=== PATIENT | female | born 1970 | race Caucasian/White ===

== ENCOUNTER 2016-08-21 13:43 | Observation (INO) | payer OTHER ==
[~2016-08-21] VITALS: Ht 172.7 cm; Wt 80.0 kg
[~2016-08-21 13:43] MED LIST: PREN0.01 PO
[2016-08-21 13:45] VITALS: BP 162/82; PULSE 74; RESP 16; TEMP 97.5; O2SAT 99
[2016-08-21 14:23] LABS: AUTOMATED NEUTROPHIL # 2.9 TH/MM3 (1.8-7.7); BASOPHIL % 0.7 % (0.0-2.0); EOSINOPHIL # 0.1 TH/MM3 (0-0.4); EOSINOPHIL % 1.1 % (0.0-4.0); HEMATOCRIT 40.4 % (35.0-46.0); HEMO FLAGS DIFF FINAL; LYMPH % 34.4 % (9.0-44.0); LYMPHOCYTE # 1.8 TH/MM3 (1.0-4.8); MEAN CELL VOLUME 92.8 FL (80.0-100.0); MEAN CORPUSCULAR HEMOGLOBIN 32.8 PG (27.0-34.0); MEAN CORPUSCULAR HGB CONC 35.4 % (32.0-36.0); MONO % 6.2 % (0.0-8.0); NEUT % 57.6 % (16.0-70.0); PLATELET COUNT 230 TH/MM3 (150-450); RED BLOOD COUNT 4.35 MIL/MM3 (4.00-5.30); WHITE BLOOD COUNT 5.1 TH/MM3 (4.0-11.0)
[2016-08-21 14:36] LABS: ANION GAP 4 MEQ/L (5-15); BICARBONATE 29.6 MEQ/L (21.0-32.0); BLOOD UREA NITROGEN 9 MG/DL (7-18); CHLORIDE 105 MEQ/L (98-107); GLOMERULAR FILTRATION RATE 73 ML/MIN (>89); POTASSIUM 3.6 MEQ/L (3.5-5.1); SODIUM (NA) 139 MEQ/L (136-145)
[2016-08-21 14:40] LABS: CREATINE KINASE 39 U/L (26-192)
--- NOTE | 2016-08-21 15:32 | RADRPT ---
EXAM DATE/TIME: 08/21/2016 14:59 [facility] COMPARISON: CHEST SINGLE AP, April 06, 2014, 15:53. INDICATIONS : Chest pain for 2 days. MEDICAL HISTORY : None. SURGICAL HISTORY : None. ENCOUNTER: Initial ACUITY: 2 days PAIN SCORE: 3/10 LOCATION: Bilateral chest FINDINGS: A single view of the chest demonstrates the lungs to be symmetrically aerated without evidence of mas s, infiltrate or effusion. The cardiomediastinal contours are unremarkable. Osseous structures are intact. CONCLUSION: No acute disease. Garcia Mooney MD on August 21, 2016 at 15:30 Board Certified Radiologist. This report was verified electronically.
[2016-08-21] MEDS ORDERED: ASPIRIN 81 MG CHEW TAB CHEW ONE (17:30)
[2016-08-21] MEDS ORDERED: LAMI200T PO (18:17)
[2016-08-21] MEDS ORDERED: AMBI10TA PO (18:17)
[2016-08-21] MEDS ORDERED: CITA10TA4 PO (18:17)
--- NOTE | 2016-08-21 19:31 | PD ---
HPI Chief Complaint: Cardiac Complaint Time Seen by Provider: 17:02 Travel History International Travel<30 days: No Contact w/Intl Traveler<30days: No Traveled to known affect area: No History of Present Illness HPI Patient is a 46 year old female who comes in complaining of chest pain and dyspnea on exertion. She says she has been feeling unwell for the past few days. She started having on and off chest pressure for the past 4 days. She says her symptoms got worse today when she became very short of breath walking up the stairs at work. She says she does this everyday without issue usually. She denies any cough. She denies nausea or vomiting. She denies fever or chills. She denies leg swelling or calf pain. She says she did travel to [place] twice two weeks ago. 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) Allergies-Medications (Allergen,Severity, Reaction): Coded Allergies: Morphine (Verified Allergy, Severe, HIVES, 08/21/16) Reported Meds & Prescriptions Reported Meds & Active Scripts Active Reported Ambien (Zolpidem Tartrate) 10 Mg Tab 10 Mg PO HS PRN Citalopram (Citalopram Hydrobromide) 10 Mg Tab 10 Mg PO DAILY Lamictal (Lamotrigine) 200 Mg Tab 200 Mg PO DAILY Review of Systems Except as stated in HPI: all other systems reviewed are Neg General / Constitutional: No: Fever, Chills HENT: No: Headaches, Lightheadedness Cardiovascular: Positive: Chest Pain or Discomfort Respiratory: Positive: Shortness of Breath, No: Cough Gastrointestinal: No: Nausea, Vomiting, Abdominal Pain Musculoskeletal: No: Myalgias, Edema, Pain Skin: No Rash, No Change in Pigmentation Neurologic: No: Weakness, Dizziness Physical Exam Narrative GENERAL: Awake and alert, in no acute distress. SKIN: Warm and dry. HEAD: Atraumatic. Normocephalic. EYES: Pupils equal and round. No scleral icterus. ENT:Mucous membranes pink and moist. NECK: Trachea midline. No JVD. CARDIOVASCULAR: Regular rate and rhythm. No murmur appreciated. RESPIRATORY: No accessory muscle use. Clear to auscultation. Breath sounds equal bilaterally. GASTROINTESTINAL: Abdomen soft, non-tender, nondistended. Hepatic and splenic margins not palpable. MUSCULOSKELETAL: No obvious deformities. No clubbing. No cyanosis. No edema. No calf tenderness. NEUROLOGICAL: Awake and alert. No obvious cranial nerve deficits. Motor grossly within normal limits. Normal speech. PSYCHIATRIC: Appropriate mood and affect; insight and judgment normal. Data Data Last Documented VS Vital Signs Date Time Temp Pulse Resp B/P Pulse Ox O2 Delivery O2 Flow Rate FiO2 08/21/16 13:45 97.5 74 16 162/82 99 Room Air Orders Electrocardiogram (08/21/16 13:53) Complete Blood Count With Diff (08/21/16 13:53) Basic Metabolic Panel (Bmp) (08/21/16 13:53) Ckmb (Isoenzyme) Profile (08/21/16 13:53) Troponin I (08/21/16 13:53) Chest, Single Ap (08/21/16 13:53) Iv Access Insert/Monitor (08/21/16 13:53) Ecg Monitoring (08/21/16 13:53) Oxygen Administration (08/21/16 13:53) Oximetry (08/21/16 13:53) Ed Urine Pregnancytest Poc (08/21/16 13:53) Coag Profile (08/21/16 13:53) Troponin I (08/21/16 17:25) Aspirin Chew (Aspirin Chew) (08/21/16 17:30) D-Dimer (08/21/16 18:20) Activity Bed Rest With Brp (08/21/16 19:31) Vital Signs (Adult) Q4H (08/21/16 19:31) Cardiac Rhythm .As Directed (08/21/16 19:31) ^ Notify Dr: Other .PRN (08/21/16 19:31) ^ Notify Dr. Parameters (08/21/16 19:31) Resp Oxygen Nasal Cannula (08/21/16 ) Diet Heart Healthy (08/22/16 Breakfast) Ckmb (Isoenzyme) Profile (08/21/16 21:20) Ckmb (Isoenzyme) Profile (08/22/16 00:20) Troponin I (08/21/16 21:20) Troponin I (08/22/16 00:20) Electrocardiogram (08/21/16 21:20) Electrocardiogram (08/22/16 00:20) ^ Obtain (08/21/16 19:31) Sodium Chloride 0.9% Flush (Ns Flush) (08/21/16 19:45) Sodium Chloride 0.9% Flush (Ns Flush) (08/21/16 21:00) Motion Picture Set Up Worker / Telemetry PEG.Q8H (08/21/16 19:31) Admit Order (Ed Use Only) (08/21/16 ) Labs Laboratory Tests Test 08/21/16 08/21/16 14:02 18:20 White Blood Count 5.1 TH/MM3 Red Blood Count 4.35 MIL/MM3 Hemoglobin 14.3 GM/DL Hematocrit 40.4 % Mean Corpuscular Volume 92.8 FL Mean Corpuscular Hemoglobin 32.8 PG Mean Corpuscular Hemoglobin 35.4 % Concent Red Cell Distribution Width 13.0 % Platelet Count 230 TH/MM3 Mean Platelet Volume 8.3 FL Neutrophils (%) (Auto) 57.6 % Lymphocytes (%) (Auto) 34.4 % Monocytes (%) (Auto) 6.2 % Eosinophils (%) (Auto) 1.1 % Basophils (%) (Auto) 0.7 % Neutrophils # (Auto) 2.9 TH/MM3 Lymphocytes # (Auto) 1.8 TH/MM3 Monocytes # (Auto) 0.3 TH/MM3 Eosinophils # (Auto) 0.1 TH/MM3 Basophils # (Auto) 0.0 TH/MM3 CBC Comment DIFF FINAL Differential Comment Sodium Level 139 MEQ/L Potassium Level 3.6 MEQ/L Chloride Level 105 MEQ/L Carbon Dioxide Level 29.6 MEQ/L Anion Gap 4 MEQ/L Blood Urea Nitrogen 9 MG/DL Creatinine 0.83 MG/DL Estimat Glomerular Filtration 73 ML/MIN Rate Random Glucose 84 MG/DL Calcium Level 8.7 MG/DL Total Creatine Kinase 39 U/L Troponin I LESS THAN 0.02 LESS THAN 0.02 NG/ML NG/ML Prothrombin Time 11.0 SEC Prothromb Time International 1.0 RATIO Ratio Activated Partial 29.0 SEC Thromboplast Time D-Dimer Quantitative (PE/DVT) LESS THAN 0.19 MG/L FEU MDM Medical Decision Making Medical Screen Exam Complete: Yes Emergency Medical Condition: Yes Medical Record Reviewed: Yes Interpretation(s) ECG shows normal sinus rhythm at 67, no ST elevation or depression, normal intervals Differential Diagnosis PE versus ACS versus NSTEMI versus STEMI versus pneumonia versus pneumothorax Narrative Course Patient is a 46-year-old female comes in complaining of chest pressure and dyspnea on exertion. Exam shows no acute abnormalities. IV established, labs sent. D-dimer and troponin are negative. Chest x-ray shows no acute findings. Patient given aspirin. Given that patient is 46 and has had a hysterectomy 8 years ago, I believe patient would benefit from observation. She was placed in chest pain center for further management. Diagnosis Primary Impression: Chest pain Qualified Code: R07.9 - Chest pain, unspecified type Admitting Information Admitting Physician Requests: Observation Jodee Otero MD Aug 21, 2016 19:31
[2016-08-21] MEDS ORDERED: SODIUM CHLORIDE 0.9% FLUSH 5 ML FLUSH IVF PRN (19:45)
[2016-08-21] MEDS: SODIUM CHLORIDE 0.9% FLUSH 5 ML FLUSH IVF SCH (21:01)
[2016-08-21 21:02] VITALS: O2SAT 99
[2016-08-21 21:04] VITALS: BP 112/56; PULSE 62; RESP 18; O2SAT 99
[2016-08-21 21:44] VITALS: BP 119/63; PULSE 62; RESP 19; TEMP 98.2; O2SAT 96
[2016-08-21 21:53] VITALS: PULSE 54
[2016-08-21 22:34] LABS: CREATINE KINASE 31 U/L (26-192)
[2016-08-22 00:25] VITALS: PULSE 55
[2016-08-22 00:32] LABS: CREATINE KINASE 44 U/L (26-192)
[2016-08-22 00:45] VITALS: BP 113/59; PULSE 62; RESP 18; TEMP 98.2; O2SAT 98
[2016-08-22 04:11] VITALS: PULSE 65
[2016-08-22 08:00] VITALS: PULSE 65
[2016-08-22 08:18] VITALS: BP 100/58; PULSE 60; RESP 18; TEMP 97.2; O2SAT 97
[2016-08-22] MEDS: SODIUM CHLORIDE 0.9% FLUSH 5 ML FLUSH IVF SCH (09:18)
[2016-08-22] MEDS ORDERED: ACETAMINOPHEN 325 MG TAB PO ONE (09:30)
--- NOTE | 2016-08-22 10:25 | HHI.DCPOC ---
Discharge Care Plan Diagnosis: (1) Chest pain, atypical (2) Tobacco abuse Goals to Promote Your Health * To prevent worsening of your condition and complications * To maintain your health at the optimal level Directions to Meet Your Goals Take your medications as prescribed Follow your dietary instruction Follow activity as directed Keep your appointments as scheduled Take your immunizations and boosters as scheduled If your symptoms worsen call your PCP, if no PCP go to Urgent Care Center or Emergency Room Smoking is Dangerous to Your Health. Avoid second hand smoke Call the 24-hour hour crisis hotline for domestic abuse at Prakash Perera Aug 22, 2016 10:25
--- NOTE | 2016-08-22 10:44 | HHI.HP ---
[facility] Primary Care Physician Juan M Love M.D. Chief Complaint Chest pain History of Present Illness This is a 46-year-old female that presents to ED via private vehicle with a complaint of shortness of breath while walking upstairs at work. This has been very recent. Also 2 days ago she began having a left upper chest pain the radius and her left arm. Last for seconds. She found it can be brought on by movement of her left arm. Denies trauma. Denies shortness breath, diaphoresis , or nausea. Denies . Review of Systems General: Patient denies fevers, chills recent, and recent travel HEENT: Patient denies headache, sore throat, difficulty swallowing. Cardiovascular: Has the chest discomfort as mentioned above. Denies sensation of heart beating rapidly or irregularly. No syncope. Respiratory: Denies shortness of breath or inspirational chest discomfort. Denies coughing wheezing or hemoptysis. GI: Patient denies nausea, vomiting, diarrhea, abdominal pain, bloody stools. Musculoskeletal: Patient denies joint pain or edema. Denies calf pain or edema. Complains of discomfort with movement of her left arm. Denies trauma. Neurovascular: Patient denies numbness, tingling, weakness in extremities. Denies headache. Endocrine: Denies polyuria and polydipsia. Hematologic: Denies easy bruising. Skin: Denies rash or itching. Past Family Social History Allergies: Coded Allergies: Morphine (Verified Allergy, Severe, HIVES, 08/21/16) Past Medical History Depression and tobacco abuse. Denies hypertension, hyperlipidemia, diabetes, and CAD. Past Surgical History Noncontributory. Reported Medications Reported Meds & Active Scripts Active Reported Ambien (Zolpidem Tartrate) 10 Mg Tab 10 Mg PO HS PRN Citalopram (Citalopram Hydrobromide) 10 Mg Tab 10 Mg PO DAILY Lamictal (Lamotrigine) 200 Mg Tab 200 Mg PO DAILY Active Ordered Medications Current Medications Medications (Trade) Dose Ordered Sig/Lashanda Route Start Time Stop Time Status Last Admin (NS Flush) 2 ml UNSCH PRN IVF 08/21/16 19:45 (NS Flush) 2 ml BID IVF 08/21/16 21:00 08/22/16 09:18 Family History Father had an IL in his 40s. Social History Patient quit smoking cigarettes 3-4 years ago but continues to smoke E cigarettes. Physical Exam Vital Signs Vital Signs Date Time Temp Pulse Resp B/P Pulse Ox O2 Delivery O2 Flow Rate FiO2 08/22/16 08:18 97.2 60 18 100/58 97 08/22/16 08:00 65 08/22/16 04:11 65 08/22/16 00:45 98.2 62 18 113/59 98 08/22/16 00:25 55 08/21/16 21:53 54 08/21/16 21:44 98.2 62 19 119/63 96 08/21/16 21:04 62 18 112/56 99 Room Air 08/21/16 21:02 99 Room Air 08/21/16 21:02 99 Room Air 08/21/16 13:45 97.5 74 16 162/82 99 Room Air Physical Exam GENERAL: This is a well-nourished, well-developed patient, in no apparent distress. Patient speaks in clear complete sentences. Patient is pleasant. HEENT: Head is atraumatic and normocephalic. Neck is supple without lymphadenopathy and trachea is midline. No JVD or carotid bruits. CARDIOVASCULAR: Regular rate and rhythm without murmurs, gallops, or rubs. RESPIRATORY: Clear to auscultation. Breath sounds equal bilaterally. No wheezes , rales, or rhonchi. Chest wall is nontender. No use of accessory muscles. GASTROINTESTINAL: Abdomen is nontender, nondistended. Abdomen soft. No obvious pulsatile mass or bruit. No CVA tenderness. Strong femoral pulses bilaterally. Normal bowel sounds in all quadrants. MUSCULOSKELETAL: Patient is moving upper and lower extremities freely. There is discomfort with range of motion of her left arm. It reproduces a discomfort in the left upper chest. No calf tenderness or edema, no Homans sign. Strong pulses in upper and lower extremities. NEUROLOGICAL: Patient is alert and oriented. Cranial nerves 2-12 are grossly intact. No focal deficits and speech is clear. SKIN: No rash and turgor is normal. Laboratory Laboratory Tests Test 08/21/16 08/21/16 08/21/16 14:02 18:20 21:30 White Blood Count 5.1 Red Blood Count 4.35 Hemoglobin 14.3 Hematocrit 40.4 Mean Corpuscular Volume 92.8 Mean Corpuscular Hemoglobin 32.8 Mean Corpuscular Hemoglobin 35.4 Concent Red Cell Distribution Width 13.0 Platelet Count 230 Mean Platelet Volume 8.3 Neutrophils (%) (Auto) 57.6 Lymphocytes (%) (Auto) 34.4 Monocytes (%) (Auto) 6.2 Eosinophils (%) (Auto) 1.1 Basophils (%) (Auto) 0.7 Neutrophils # (Auto) 2.9 Lymphocytes # (Auto) 1.8 Monocytes # (Auto) 0.3 Eosinophils # (Auto) 0.1 Basophils # (Auto) 0.0 CBC Comment DIFF FINAL Differential Comment Sodium Level 139 Potassium Level 3.6 Chloride Level 105 Carbon Dioxide Level 29.6 Anion Gap 4 Blood Urea Nitrogen 9 Creatinine 0.83 Estimat Glomerular Filtration 73 Rate Random Glucose 84 Calcium Level 8.7 Total Creatine Kinase 39 44 31 Troponin I LESS THAN 0.02 LESS THAN 0.02 LESS THAN 0.02 Prothrombin Time 11.0 Prothromb Time International 1.0 Ratio Activated Partial 29.0 Thromboplast Time D-Dimer Quantitative (PE/DVT) LESS THAN 0.19 Result Diagram: 08/21/16 1402 08/21/16 1402 Imaging Last Impressions Chest X-Ray 08/21/16 1353 Signed Impressions: Service Date/Time: August 14:59 - CONCLUSION: No acute disease. Garcia Mooney MD Course EKG has sinus bradycardia without significant ST segment depressions or elevations. Assessment and Plan Assessment and Plan * Atypical chest pain: Patient had serial EKGs and cardiac enzymes for ruling out purposes. She has been seen by Dr. Rajiv Kelly of cardiology and the chest pain center. She will undergo a Darryl protocol ETT. If the stress test or to be nonischemic, she would then be discharged home with instruction to follow-up with her primary care physician. * Tobacco abuse: Patient needs to quit use of the e-cigarette. Prakash Perera Aug 22, 2016 10:44
--- NOTE | 2016-08-22 14:41 | EKG ---
Date Performed: 08/22/2016 Time Performed: 00:17:37 PTAGE: 46 years EKG: SINUS BRADYCARDIA BORDERLINE ECG PREVIOUS TRACING : 08/21/2016 20.59 Since previous tracing, no significant change noted DOCTOR: Rajiv Kelly Interpretating Date/Time 08/22/2016 14:40:10
--- NOTE | 2016-08-22 16:50 | EKG ---
Date Performed: 08/21/2016 Time Performed: 20:59:49 PTAGE: 46 years EKG: Sinus rhythm NORMAL ECG PREVIOUS TRACING : 08/21/2016 13.58 Since previous tracing, no significant change noted DOCTOR: Rajiv Kelly Interpretating Date/Time 08/22/2016 16:48:26
--- NOTE | 2016-08-22 16:51 | EKG ---
Date Performed: 08/21/2016 Time Performed: 13:58:58 PTAGE: 46 years EKG: Sinus rhythm NORMAL ECG PREVIOUS TRACING : 04/06/2014 15.43 Since previous tracing, no significant change noted DOCTOR: Rajiv Kelly Interpretating Date/Time 08/22/2016 16:49:44
--- NOTE | 2016-08-22 17:06 | TR ---
Date Performed: 08/22/2016 Time Performed: 09:26:25 DOCTOR: Rajiv Kelly DRUG LIST: CLINICAL HISTORY: REASON FOR TEST: REASON FOR ENDING: OBSERVATION: CONCLUSION: EMELINA PROTOCOL. NO CP. TEST STOPPED AFTER EXCEEDING GOAL HR SECONDARY TO SOB AND LE G FATIGUE.Maximum BZ=241 % Max HR Achieved=87.0% Maximum EY=227/76 Total Exercise Time=10:31 COMMENTS: Patient exercised using the Emelina protocol. No electrocardiographic changes were seen to suggest ischemia. Hemodynamic response to exercise was normal. No significant arrhythmia was prese nt.
== END 2016-08-22 11:24 | disposition home or self-care (01) ==
LOC: NEPB 13:43 → NEDA 19:33 → NEPGCP 21:11
PROVIDERS: ADMIT Internal Medicine Cardiovascular Disease; ATTEND Internal Medicine Cardiovascular Disease
DX: R07.89 Other chest pain (principal); R06.02 Shortness of breath; F17.210 Nicotine dependence, cigarettes, uncomplicated; K21.9 Gastro-esophageal reflux disease without esophagitis
CPT/HCPCS: 71010; 80048; 82550; 84484; 85025; 85379; 85610; 85730; 93005; 93017; 99285; G0378